=== PATIENT | male | born 2000 | race Caucasian/White ===

== ENCOUNTER 2021-02-04 13:08 | Outpatient (CLI) | payer OTHER ==
[~2021-02-04] VITALS: Ht 182.9 cm; Wt 61.6 kg
[2021-02-04] MEDS ORDERED: SINGULAIR 110 MG/TAB PO (13:31)
[2021-02-04] MEDS ORDERED: ZYRTEC 10MG10 MG PO (13:31)
[2021-02-04] MEDS ORDERED: RT ADVAIR HFA 2312 G IH (13:32)
[2021-02-04] MEDS ORDERED: PROAIR HFA0.09 MG/AC IH ×2 (13:32→13:33)
--- NOTE | 2021-02-04 14:30 | NUR ---
PT UP TO B/R TO VOID, WHEN BACK IN CHAIR, STATES HIS "CHEST FEELS TIGHT" NO SOB AT THIS TIME. NO C/O ITCHING OR WHEEZING. 108/69 98%, PULSE 72, RR 16. SKIN WARM AND DRY. DR PEREZ CALLED WITH VERBAL ORDER TO TAKE TO ER, PT TAKEN TO ER 1T 1450 VIA W/C, WHILE IN ER PT STATES HE FEELS "CAN'T CATCH MY BREATH" DR PEREZ WITH VERBAL ORDER TO GIVEN PT HIS OWN EPI PEN HE BROUGHT IN FOR HIS ALLERGIES, JESSA RN ASSISTED AND GAVE INJECTION OF PT OWN MEDICATION OF EPI PEN 0.3MG AUTO INJECTOR TO LEFT THING WHILE IN ER ROOM, REPORT GIVEN TO NURSE
[2021-02-04] MEDS ORDERED: EPIPEN 2-PAK1 MG/ML IM (18:02)
--- NOTE | 2021-04-09 11:01 | NUR ---
sEVERAL MESSAGES LEFT WITH OFFICE IN REGARDS IF PT IS CONTINUING XOLAIR.sPOKE WITH PT TODAY AND PER PT HE WILL NOT BE CONTINUING XOLAIR.REQUESTED DISCONTINUE ORDER FROM OFFICE.
== END 2021-02-04 15:00 | disposition home or self-care (01) ==
LOC: EUO 13:08
DX: J45.40 Moderate persistent asthma, uncomplicated (principal); J30.9 Allergic rhinitis, unspecified
CPT/HCPCS: J2357

== ENCOUNTER 2021-02-04 14:52 | Emergency (ER) | payer OTHER ==
[~2021-02-04] VITALS: Ht 172.7 cm; Wt 68.2 kg
[~2021-02-04 14:52] MED LIST: PROAIR HFA0.09 MG/AC IH; RT ADVAIR HFA 2312 G IH; SINGULAIR 110 MG/TAB PO; ZYRTEC 10MG10 MG PO
[2021-02-04 14:55] VITALS: TEMP 98.4
[2021-02-04] MEDS ORDERED: EPIPEN 2-PAK1 MG/ML IM (18:02)
[2021-02-04 18:29] VITALS: BP 103/87; PULSE 66
== END 2021-02-04 18:30 | disposition home or self-care (01) ==
LOC: COL.ER 14:52
DX: T88.6XXA Anaphylactic reaction due to adverse effect of correct drug or medicament properly administered, initial encounter (principal); T48.6X5A Adverse effect of antiasthmatics, initial encounter; J45.909 Unspecified asthma, uncomplicated; Z79.899 Other long term (current) drug therapy; Y92.531 Health care provider office as the place of occurrence of the external cause
CPT/HCPCS: J1200; J2930; J7030